=== PATIENT | male | born 1990 | race Caucasian/White ===

== ENCOUNTER 2023-12-15 22:04 | Emergency (ER) | payer BC ==
[~2023-12-15] VITALS: Ht 172.7 cm; Wt 79.8 kg
[2023-12-15 23:34] VITALS: BP 134/68; TEMP 98.1; O2SAT 98
== END 2023-12-16 00:04 | disposition home or self-care (01) ==
LOC: ER 22:13
DX: F10.129 Alcohol abuse with intoxication, unspecified (principal); Y90.9 Presence of alcohol in blood, level not specified